=== PATIENT | male | born 1950 | race American Indian/Alaskan Native ===

== ENCOUNTER 2021-05-25 08:10 | Emergency (ER) | payer OTHER ==
[~2021-05-25] VITALS: Ht 188 cm; Wt 86.2 kg
[2021-05-25] MEDS ORDERED: SYNTHROID112 MCG (08:28)
[2021-05-25] MEDS ORDERED: NOXIFOL-D32500 UNIT (08:29)
[2021-05-25] MEDS ORDERED: TAMS0.4C (08:29)
[2021-05-25] MEDS ORDERED: DICLOFENAC POTA50 MG PO (10:58)
[2021-05-25] MEDS ORDERED: ORPHENADRINE C100 MG PO (10:58)
== END 2021-05-25 11:10 | disposition home or self-care (01) ==
LOC: ER 08:10
DX: G89.11 Acute pain due to trauma (principal); M25.562 Pain in left knee; M79.605 Pain in left leg; S80.12XS Contusion of left lower leg, sequela; S80.02XS Contusion of left knee, sequela; W18.39XS Other fall on same level, sequela